=== PATIENT | male | born 1975 | race Caucasian/White ===

== ENCOUNTER 2021-12-14 10:39 | Inpatient (IN) | payer OTHER ==
[~2021-12-14] VITALS: Ht 175.3 cm; Wt 78.0 kg
[2021-12-15] MEDS ORDERED: PANTOPRAZOLE SO40 MG (10:39)
[2021-12-15] MEDS ORDERED: FAMOTIDINE20 MG (10:39)
[2021-12-15] MEDS ORDERED: DICLOFENAC POTA50 MG (10:39)
[2021-12-15] MEDS ORDERED: OMEPRAZOLE20 MG (10:39)
[2021-12-20] MEDS ORDERED: AMOX-CLAV 875-1 EAC1 PO (15:47)
[2021-12-20] MEDS ORDERED: INTESTINEX680 M1 PO (15:47)
== END 2021-12-20 21:42 | disposition home or self-care (01) | DRG 392 ==
LOC: ER 10:39 → SURH 19:53 → SEC-K 19:53 → SURH 21:02
PROVIDERS: ADMIT Surgery; ATTEND Surgery
PROC: BW21ZZZ Computerized Tomography (CT Scan) of Abdomen and Pelvis (ICD-10-PCS; principal; 2021-12-14)
DX: K57.20 Diverticulitis of large intestine with perforation and abscess without bleeding (principal); R10.32 Left lower quadrant pain; R19.4 Change in bowel habit; Z20.822 Contact with and (suspected) exposure to COVID-19

== ENCOUNTER 2022-04-20 11:15 | Inpatient (IN) | payer OTHER ==
[~2022-04-20] VITALS: Ht 175.3 cm; Wt 76.7 kg
[~2022-04-20 11:15] MED LIST: AMOX-CLAV 875-1 EAC1 PO; DICLOFENAC POTA50 MG; FAMOTIDINE20 MG; INTESTINEX680 M1 PO; OMEPRAZOLE20 MG; PANTOPRAZOLE SO40 MG
[2022-04-22] MEDS ORDERED: DICLOFENAC POTA50 MG (08:50)
[2022-04-24] MEDS ORDERED: ULTRAM50 MG PO (12:01)
[2022-04-24] MEDS ORDERED: LEVSIN/SL0.125 MG SL (12:01)
[2022-04-24] MEDS ORDERED: INTESTINEX680 M1 PO (12:02)
== END 2022-04-24 14:03 | disposition home or self-care (01) | DRG 331 ==
LOC: O/R 04-22 06:00 → SURH 04-22 07:00
PROVIDERS: ADMIT Surgery; ATTEND Surgery
PROC: 0DBP4ZZ Excision of Rectum, Percutaneous Endoscopic Approach (ICD-10-PCS; 2022-04-22)
PROC: 0DJD8ZZ Inspection of Lower Intestinal Tract, Via Natural or Artificial Opening Endoscopic (ICD-10-PCS; 2022-04-22)
PROC: 3E0F7SF Introduction of Other Gas into Respiratory Tract, Via Natural or Artificial Opening (ICD-10-PCS; 2022-04-22)
PROC: 0DTN4ZZ Resection of Sigmoid Colon, Percutaneous Endoscopic Approach (ICD-10-PCS; principal; 2022-04-22 07:00)
DX: K57.20 Diverticulitis of large intestine with perforation and abscess without bleeding (principal); K64.8 Other hemorrhoids; R19.4 Change in bowel habit; R10.32 Left lower quadrant pain

== ENCOUNTER 2024-11-06 11:00 | Emergency (ER) | payer OTHER ==
[~2024-11-06] VITALS: Ht 172.7 cm; Wt 89.8 kg
[~2024-11-06 11:00] MED LIST changes: +LEVSIN/SL0.125 MG SL; +ULTRAM50 MG PO
[2024-11-06] MEDS ORDERED: KETOROLAC TROMETHAMINE 30 MG VIAL ONE (11:43)
[2024-11-06] MEDS ORDERED: TAMSULOSIN HCL 0.4 MG CAP PO ONE ×2 (11:43→11:45)
[2024-11-06] MEDS ORDERED: 0.9 % SODIUM CHLORIDE 1,000 ML IV SCH (11:45)
[2024-11-06] MEDS ORDERED: KETOROLAC TROMETHAMINE 30 MG VIAL IV ONE (11:45)
[2024-11-06 12:08] LABS: HEMATOCRIT 41.2 % (39.0-48.0); HEMOGLOBIN 13.7 g/dL (13-16.00); MEAN CELL VOLUME 92.2 fL (80.0-100.00); MEAN CORPUSCULAR HEMOGLOBIN 30.7 pg (27.00-32.0); MEAN CORPUSCULAR HGB CONC 33.3 g/dl (32.0-36.0); PLATELET COUNT 287 K/uL (150-450); RED BLOOD COUNT 4.46 M/uL (4.00-6.00); RED CELL DISTRIBUTION WIDTH 12.5 % (11.5-14.5)
[2024-11-06 12:37] LABS: ALBUMIN 3.6 gm/dL (3.4-5.0); BILIRUBIN TOTAL 0.63 mg/dL (0.3-1.2); CALCIUM 9.2 mg/dL (8.5-10.1); CREATININE SERUM 1.25 mg/dL (0.70-1.30); GFR 61.65; GLOBULINA 4.4 G/DL (2.4-3.5); POTASSIUM 4.44 mEq/L (3.5-5.1)
[2024-11-06 12:37] LABS: URINE APPEARANCE Clear; URINE BILIRRUBIN Negative (NEGATIVE); URINE BLOOD Negative; URINE COLOR Yellow; URINE GLUCOSE Negative (NEGATIVE); URINE KETONE Negative (NEGATIVE); URINE LEUKOCYTE Negative; URINE NITRATE Negative; URINE PROTEIN Trace (NEGATIVE); URINE UROBILINOGEN 0.2 E.U./dl
[2024-11-06 12:41] LABS: URINE BACTERIA 12.2 uL (0.0-1933); URINE EPITHELIAL CELLS 2.6 uL (0.0-38.8); URINE RBC 6.3 uL (0.0-20.8); URINE WBC 12.3 uL (0.0-23.2)
[2024-11-06 12:56] LABS: URINE CAST 0.29 uL (0.0-1.40)
[2024-11-06] MEDS ORDERED: TAMS0.4C PO (15:06)
[2024-11-06] MEDS ORDERED: CEPHALEXIN500 MG PO (15:06)
[2024-11-06] MEDS ORDERED: KETO10TA2 PO (15:06)
== END 2024-11-06 15:15 | disposition home or self-care (01) ==
LOC: ER 11:02
PROVIDERS: General Practice
DX: R10.9 Unspecified abdominal pain (principal); Z91.013 Allergy to seafood; Z91.041 Radiographic dye allergy status